=== PATIENT | female | born 1970 | race Hispanic/Latino ===

== ENCOUNTER 2019-04-11 15:53 | Emergency (ER) | payer OTHER ==
[2019-04-11] MEDS ORDERED: ACETAMINOPHEN 325 MG TAB ONE (17:26)
[2019-04-11 17:48] LABS: APPEARANCE,URINE Clear (CLEAR); BILIRUBIN,URINE Negative (NEGATIVE); COLOR,URINE Yellow (YELLOW); GLUCOSE, URINE (UA) Negative (NEGATIVE); KETONES,URINE Negative (NEGATIVE); LEUKOCYTE ESTERASE ,URINE Moderate (NEGATIVE); NITRATE,URINE Negative (NEGATIVE); OCCULT BLOOD,URINE Negative (NEGATIVE); PROTEIN,URINE Negative (NEGATIVE); UROBILINOGEN,URINE 0.2 mg/dL (0.2-1.0)
[2019-04-11 17:58] LABS: RAPID GROUP A STREP NEGATIVE (NEGATIVE)
[2019-04-11 18:17] LABS: BACTERIA,URINE Few /HPF (None Seen)
[2019-04-11 18:18] LABS: RBC,URINE None Seen /HPF (0-1)
== END 2019-04-11 18:40 | disposition home or self-care (01) ==
LOC: EDH 15:53
DX: B34.9 Viral infection, unspecified (principal)
CPT/HCPCS: 81001; 87088; 87804; 87880